=== PATIENT | female | born 1970 | race African-American/Black ===

== ENCOUNTER 2020-12-09 09:01 | Outpatient (CLI) | payer OTHER, SELFPAY ==
--- NOTE | ~2020-12-09 | MM_ITS ---
EXAMINATION: MM screening ismael BI w humaira HISTORY: Screening mammogram TECHNIQUE: Craniocaudal and mediolateral oblique 3-D tomosynthesis images were obtained and synthetic 2-D images were generated. CAD analysis was submitted and interpreted. COMPARISON: 09/14/2019, 03/26/2017, 09/06/2015 bilateral digital screening mammogram examinations BREAST PARENCHYMAL COMPOSITION: There are scattered areas of fibroglandular density. FINDINGS: There are 2 biopsy markers on the left; history of prior benign left breast biopsy. There i s no evidence of suspicious mass, calcification, or architectural distortion to suggest malignancy in either breast. There has been no suspicious interval change. IMPRESSION: 1. No mammographic evidence of malignancy. 2. Recommend routine screening mammography in one year. BI-RADS Category 1: Negative Reviewed, dictated and finalized at location A. TARY SOURCE OPERATIONS SPECIALIST
== END 2020-12-09 09:02 | disposition home or self-care (01) ==
LOC: ANHIMG 09:06
PROVIDERS: PCP Internal Medicine; Visit Provider Internal Medicine
DX: Z12.31 Encounter for screening mammogram for malignant neoplasm of breast (principal)
CPT/HCPCS: 77063; 77067

== ENCOUNTER 2021-08-11 13:51 | Outpatient (CLI) | payer OTHER, SELFPAY ==
--- NOTE | ~2021-08-11 | MMUS_ITS ---
EXAMINATION: MM diagnostic ismael LT w humaira, US breast LT limited HISTORY: Palpable left breast abnormality TECHNIQUE: Additional 3-D tomosynthesis images of the breasts were performed and synthetic 2-D images were generated. CAD analysis was submitted and interpreted. High resolution Limited left breast ultr asound was performed. COMPARISON: Comparison to multiple prior studies sequentially, with oldest reviewed study dated 08/28. BREAST PARENCHYMAL COMPOSITION: Breast composed of scattered areas of fibroglandular density. FINDINGS: MAMMOGRAPHIC FINDINGS: There are no suspicious masses, calcifications or architectural distortion in either breast to sugges t malignancy. ULTRASOUND: Limited left breast ultrasound: At 1:00, 10 cm from the nipple there is a round slightly hyperechoic mass measuring 7 mm with internal cystic change. There is marginal vascularity. There is posterior sh adowing. IMPRESSION: 1. Probable benign left breast mass at 1:00, 10 cm from the nipple measuring 7 mm greatest dimension. No mammographic correlate. 2. Recommend 6 month follow-up left breast ultrasound BI-RADS category 3, probably benign findings. Reviewed, dictated and finalized at location A. IMPRESSION: 1. Probable benign left breast mass at 1:00, 10 cm from the nipple measuring 7 mm greatest dimension. No mammographic correlate. 2. Recommend 6 month follow-up left breast ultrasound BI-RADS category 3, probably benign findings.
== END 2021-08-11 13:52 | disposition home or self-care (01) ==
PROVIDERS: PCP Internal Medicine; Visit Provider Internal Medicine
DX: N63.20 Unspecified lump in the left breast, unspecified quadrant (principal)
CPT/HCPCS: 76642; 77061; 77065; G0279

== ENCOUNTER 2023-09-03 12:18 | Outpatient (CLI) | payer BC, SELFPAY ==
--- NOTE | ~2023-09-03 | MM_ITS ---
EXAMINATION: MM diagnostic ismael BI w humaira HISTORY: Patient lost 140 pounds. TECHNIQUE: Additional 3-D tomosynthesis images of the breasts were performed and synthetic 2-D images were generated. CAD analysis was submitted and interpreted. COMPARISON: Comparison to multiple prior studies sequentially, with oldest reviewed study dated 08/28. BREAST PARENCHYMAL COMPOSITION: The breasts are heterogeneously dense, which may obscure small masses FINDINGS: The breasts are stable. No new masses, calcifications or architectural distortion in either breast to suggest malignancy. IMPRESSION: 1. No evidence for malignancy in either breast. 2. Routine yearly screening mammogram and regular clinical breast examination are recommended. BI-RADS Category 1: Negative Reviewed, dictated and finalized at location A. RIPSAW OPERATOR IMPRESSION: 1. No evidence for malignancy in either breast. 2. Routine yearly screening mammogram and regular clinical breast examination a re recommended. BI-RADS Category 1: Negative
== END 2023-09-03 12:19 | disposition home or self-care (01) ==
LOC: ANHIMG 12:21
PROVIDERS: PCP Internal Medicine; Visit Provider Internal Medicine
DX: R92.8 Other abnormal and inconclusive findings on diagnostic imaging of breast (principal)
CPT/HCPCS: 77062; 77066; G0279

== ENCOUNTER 2025-05-26 15:44 | Outpatient (CLI) | payer BC, SELFPAY ==
--- NOTE | ~2025-05-26 | MM_ITS ---
EXAMINATION: MM screening ismael BI w humaira HISTORY: Screening TECHNIQUE: Craniocaudal and mediolateral oblique 3-D tomosynthesis images were obtained and synthetic 2-D images were generated. CAD analysis was submitted and interpreted. COMPARISON: Comparison to multiple prior studies sequentially, with oldest reviewed study dated 08/28. BREAST PARENCHYMAL COMPOSITION: Dense: The breasts are extremely dense, which lowers the sensitivity of mammography. FINDINGS: There is no evidence of suspicious mass, calcification, or architectural distortion to sugg est malignancy in either breast. There has been no suspicious interval change. IMPRESSION: 1. No mammographic evidence of malignancy. 2. Recommend routine screening mammography in one year. BI-RADS Category 1: Negative Reviewed, dictated and finalized at location B.
--- OUTSIDE RECORDS SUMMARY | 2025-05-26 15:48 | XMS_ITS | Clinical Summary ---
Author Organization [facility] Address [address] [place] [address] Care Team Providers Care Interactive Multimedia Designer Name Role Phone Irlanda Mg MD Primary Care Provider [phone] Allergies Active Allergy Reactions Criticality Noted Date Comments Povidone Iodine Rash Low 10/02/2017 Shellfish-Derived Products Rash,Angioedema Low 03/2017 Medications methylPREDNISolone , EFREM, 4 MG tablet Take 1 tablet (4 mg total) by mouth see administration instructions. 6 TABLETS ON DAY ONE, 5 TABLETS DAY TWO, 4 TABLETS DAY THREE, 3 TABLETS DAY FOUR, 2 TABLETS DAY FIVE, AND 1 TABLET DAY SIX 1 each 10/02/20 17 Active ondansetron 4 MG disintegrating tablet Take 2 tablets (8 mg total) by mouth every 8 (eight) hours as needed for Nausea. 20 tablet 10/02/20 17 Active hydrocodone-acetam inophen 5-325 MG tablet Take 1 tablet by mouth every 6 (six) hours as needed for Pain. 12 tablet 10/06/20 17 Active Active Problems No known active problems Social History Tobacco Use Types Packs/Day Years Used Date Smoking Tobacco: Never Smokeless Tobacco: Never Alcohol Use Standard Drinks/Week Comments No 0 (1 standard drink = 0.6 oz pur e alcohol) Comments No Sex and Gender Information Value Date Recorded Sex Assigned at Female 01/21/2025 8:37 AM CDT Legal Sex Female 8:23 PM CDT Gender Identity Not on file Sexual Orientation Not on file Last Filed Vital Signs Vital Sign Reading Time Taken Comments Blood Pressure 127/65 05/16/2018 6:12 PM CDT Pulse 64 05/16/2018 6:12 PM CDT Temperature 36.9 C (98.5 F) 05/16/2018 1:30 PM CDT Respiratory Rate 18 05/16/2018 6:12 PM CDT Oxygen Saturation 98% 05/16/2018 6:12 PM CDT Inhaled Oxygen Concentration - - Weight 102.1 kg (225 lb) 05/16/2018 1:30 PM CDT Height 167.6 cm (5' 6) 05/16/2018 1:30 PM CDT Body Mass Index 36.32 05/16/2018 1:30 PM CDT Plan of Treatment Health Maintenance Due Date Last Done Comments Colorectal Cancer Screening Colonoscopy (10 Years) 1969 Annual Physical 1972 Hepatitis C 1987 DTaP, Tdap and Td Vaccines ( 1 - Tdap) 1988 Hepatitis B Vaccines (1 of 3 - 19+ 3-dose series) 1988 Mammogram Screening 2009 Pneumococcal Vaccine: 50+ Years (1 of 1 - PCV) 2019 Zoster Vaccines (1 of 2) 2019 09/27/2024 COVID-19 Vaccine (4 - 2023-2 5 season) 2024 09/11/2021, 12/14/2020, 11/16/2020 Meningococcal B Vaccine Aged Out No l onger eligible based on patient's age to complete this topic Meningococcal Vaccine Aged Out No walter ricky eligible based on patient's age to complete this topic RSV Immunizations Under 20 Months Aged Out No longer eligible b ased on patient's age to complete this topic Insurance [facility] Care Teams Interactive Multimedia Designer Relationship Specialty Start Date End Date Irlanda Mg MD PCP - General 02/12/17
--- OUTSIDE RECORDS SUMMARY | 2025-05-26 15:48 | XMS_ITS | Encounter Summary ---
Author Organization [facility] Address [address] [place] [address] Care Team Providers Care Catalytic Converter Operator Helper Name Role Phone Irlanda Mg MD Primary Care Provider [phone] Irlanda Mg MD Unavailable [phone] Encounter Details Date Type Department Care Team (Late st Contact Info) Description 08/22/2020 [facility] Outpatient Visit [facility] [address] [place] [address] [place] [address] [address] Social History Tobacco Use Types Packs/Day Years Used Date Smoking Tobacco: Never Smokeless Tobacco: Never Alcohol Use Standard Drinks/Week Comments No 0 (1 standard drink = 0.6 oz pur e alcohol) Comments No Sex and Gender Information Value Date Recorded Sex Assigned at Not on file Legal Sex Female 5:32 AM TRADER Gender Identity Not on file Sexual Orientation Not on file documented as of this encounter Functional Status * Is person deaf or have serious hearing difficulty? Answer Date of Assessment Author No 08/05/2016 1:26 AM Eden Andrews RN * Is person blind or have serious difficulty seeing? Answer Date of Assessment Author No 08/05/2016 1:26 AM Eden Andrews RN * Does person have serious difficulty walking/climbing stairs? Answer Date of Assessment Author No 08/05/2016 1:26 AM Eden Andrews RN * Does person have difficulty dressing/bathing? Answer Date of Assessment Author No 08/05/2016 1:26 AM Eden Andrews RN * Does person have difficulty doing errands alone? Answer Date of Assessment Author No 08/05/2016 1:26 AM Eden Andrews RN documented as of this encounter Mental Status * Does person have difficulty concentrating/remembering/making decisions? Answer Entry Date Author No 08/05/2016 1:26 AM Eden Andrews RN documented in this encounter Plan of Treatment Not on file documented as of this encounter Visit Diagnoses Not on filedocumented in this encounter Care Teams Catalytic Converter Operator Helper Relationship Specialty Start Date End Date Irlanda Mg MD [address] [place] [address] PCP - General Internal Medicine 01/28/19 Irlanda Mg MD [address] [facility] [address] [place] [address] Internal Medicine 01/28/19 documented as of this encounter
--- OUTSIDE RECORDS SUMMARY | 2025-05-26 15:48 | XMS_ITS ---
Author Organization [facility] ([address]) Address [address] [address] Care Team Providers Care Campaign Marketing Specialist Name Role Phone Irlanda Mg Primary Care Provider Unavailab Dr. Orville Carvalho Unavailable [phone] [facility], Provider Unavailable Unavailab myriam Allergies Allergen (clinical drug ingredient) Drug/Non Drug Allergy documented on EMR Reaction Allergy Type Onset Date Status povidone-iodine Betadine rash Drug Allergy A ctive codeine Codeine stomach upset Drug Allergy Act sonya tramadol traMADol stomach upset Drug Allergy Act sonya REASON FOR VISIT [facility] Encounter Medications Medication SIG (Take, Route, Frequency, Duration) Notes Start Date End Date Status Amitriptyline HCl 25 MG 1/2 tab qHS x 1 wk, then 1 tab qHS orally as directed; Duration: 30 days 08/08/2023 Active amLODIPine Besylate 10 MG 1 tab(s) orally once a day Active Calcium Carbonate 500 MG 1 TAB(S) CHEWED ONCE A DAY *Please review and pick correct strength-formulatio n from [facility] options. If intended option is not shown, discontinue and re-order from Quick Search* Active Lasix 40 MG 1 tab(s) orally once a day Active Rizatriptan Benzoate 10 MG 1 tab(s) orally bid prn; Duration: 30 days 08/08/2023 Active Coreg 25 MG 1 tab(s) orally 2 times a day Active Encounters Encounter Location Date Provider Diagnosis [facility] - [facility] [address] [place] [address] 04/11/2024 Provider [facility]-Migration Plan Of Treatment No Information Progress Notes * Yamilka MACHUCADOB:1970 (54 yo F)Acc No.[id number]:04/11/2024 Patient: Yamilka VILLARREAL Provider: Fidelina ye Migration :1970 A ge:53 Y S ex:Female Date:04/11/2024 Address:[address] [place] [address] Dolores [place], [id number] Pcp:Irlanda Mg Subjective: * Chief Complaints: * [facility] . [facility] * Medical History: * Medications: T aking Lasix 40 MG Tablet 1 tab(s) orally once a day , Taking Calcium Carbonate 500 MG TABLET, CHEWABLE 1 TAB(S) CHEWED ONCE A DAY , Notes to Pharmacist: *Please review and pick correct strength-formulation [facility] options. If intended option is not shown, discontinue and re-order from Quick Search*, Taking Coreg 25 MG Tablet 1 tab(s) orally 2 times a day , Taking amLODIPine Besylate 10 MG Tablet 1 tab(s) orally once a day , Taking Amitriptyline HCl 25 MG Tablet 1/2 tab qHS x 1 wk, then 1 tab qHS orally as directed , Taking Rizatriptan Benzoate 10 MG Tablet 1 tab(s) orally bid prn * Allergies: B etadine: rash, traMADol: stomach upset - Side Effects, Codeine: stomach upset - Side Effects. Objective: * Vitals: Assessment: Plan: * Treatment: * Billing Information: * Visit Code: * Procedure Codes: * Electronic signature of Prov ider ZZ-Migration on 05/26/2025 at 03:47 PM CDT Sign off status: Pending * Provider: Fidelina ye Migration Date: 04/11/2024 Generated for Luis Antonio pruitt/Helio/Tammy on: 0 05/26/2025 03:47 PM CDT
--- OUTSIDE RECORDS SUMMARY | 2025-05-26 15:48 | XMS_ITS | Clinical Summary ---
Author Organization [facility] Address [address] [place] [address] Care Team Providers Care Roofing Contractor Name Role Phone Irlanda Mg MD Primary Care Provider [phone] Irlanda Mg MD Unavailable [phone] Source Comments [facility],non-owned Affiliates and Associated Physician Practices is amultiple site organization consisting of ambulatory clinics and hospital sitesin [place], [place], [place] and [place]. This disclosure is being madepursuant to the Care Everywhere program and may not contain all information available regarding this patient. Last updated 18.[facility] Allergies Active Allergy Reactions Criticality Noted Date Comments Povidone Iodine Rash Medium 02/16/2016 Codeine Nausea and/or Vomiting 07/11/2020 Lisinopril Cough 08/13/2019 Shellfish Allergy Urticaria Medium 04/08/2017 Tramadol Nausea and/or Vomiting 07/11/2020 Medications * Be aware that medications may not be up to date on this document. Alwaysverify current medications with the patient. pantoprazole EC (PROTONIX) 40 MG tablet Take 1 (one) tablet by mouth once daily Active carvedilol (COREG) 25 MG tablet Take 0.5 (one-half) tablet to 1 (one) tablet by mouth 2 times daily with morning and evening meal Hold if BP less than 90/60 Active Eliquis 2.5 MG tablet 03/17/2024 Active aspirin EC (Ecotrin) 81 MG tablet Take 1 (one) tablet by mouth once daily Active Acetaminophen-C odeine #3 300-30 MG Take 1 (one) tablet by mouth every 6 hours as needed 02/25/2023 Active diazePAM (Valium) 5 MG tablet 03/17/2024 Active cefadroxil (Duricef) 500 MG capsule 03/17/2024 Active vitamin D, ergocalciferol, (Drisdol) 1.25 MG (36957 UT) capsule TAKE 1 CAPSULE BY MOUTH ONE TIME PER WEEK 02/09/2024 Active ondansetron, disintegrating, (Zofran ODT) 4 MG tablet 03/17/2024 Active rizatriptan (Maxalt) 10 MG tablet TAKE 1 TABLET BY MOUTH TWICE A DAY NEEDED FOR 30 DAYS Active tiZANidine (Zanaflex) 4 MG tablet TAKE 1 TABLET BY MOUTH EVERY 6 - 8 HOURS NEEDED NOT TO EXCEED 3 DOSES IN 24 HOURS Active Calcium 250 MG 0 10/31/2023 Acti ve Multiple Vitamin (MULTIVITAMIN ADULT PO) 0 10/31/2023 Active amLODIPine (Norvasc) 10 MG tablet Take 1 (one) tablet by mouth once daily Active Active Problems Problem Noted Date Diagnosed Date 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 S/P gastric bypass 04/03/2021 Belching 06/21/2016 Gastroesophageal reflux disease without esophagi tis 02/16/2016 Abdominal bloating 02/16/2016 Nausea 02/16/2016 Hypertension 12/09/2013 Family History Medical History Relation Name Comments Glaucoma Maternal Grandfather Blindness Neg Hx Macular Degeneration Neg Hx Relation Name Status Comments Maternal Grandfather Social History Tobacco Use Types Packs/Day Years Used Date Smoking Tobacco: Never Smokeless Tobacco: Never Alcohol Use Standard Drinks/Week Comments Never 0 (1 standard drink = 0.6 oz pur e alcohol) AUDIT-C Answer Date Recorded Q1: How often do you have a drink containing alc ohol? Never 01/07/2022 Average Number of Drinks Not on file 022 Frequency of Binge Drinking Not on file 12/26 Comments No Sex and Gender Information Value Date Recorded Sex Assigned at Not on file Legal Sex Female 5:32 AM PRODUCT DISTRIBUTION SPECIALIST Gender Identity Not on file Sexual Orientation Not on file Last Filed Vital Signs Vital Sign Reading Time Taken Comments Blood Pressure 133/81 01/07/2022 4:31 AM CDT Pulse 78 01/07/2022 4:31 AM CDT Temperature 37.2 C (99 F) 01/07/2022 3:04 AM CDT Respiratory Rate 22 01/07/2022 4:31 AM CDT Oxygen Saturation 100% 01/07/2022 4:31 AM CDT Inhaled Oxygen Concentration - - Weight 89.8 kg (198 lb) 01/07/2022 3:01 AM CDT Height 167.6 cm (5' 6) 01/07/2022 3:01 AM CDT Body Mass Index 31.96 01/07/2022 3:01 AM CDT Plan of Treatment Health Maintenance Due Date Last Done Comments COLOGUARD (AGES 45-75) - COLON CA SCREENING 1969 COLON MONITORING 1969 COLONOSCOPY - COLON CA SCREENING 1969 CT COLONOGRAPHY - COLON CA SCREENING 1969 Colorectal Cancer Screening 1969 FIT - COLON CA SCREENING 1969 FLEX SIG - COLON CA SCREENING 1969 LIPID TESTING 1969 MAMMOGRAM 1969 HIV SCREENING 1984 HEPATITIS C SCREENING 11/24/1987 DTAP/TDAP/TD VACCINES (1 - Tdap) 1988 HEPATITIS B VACCINE (1 of 3 - 19+ 3-dose series) 1988 PNEUMOCOCCAL VACCINE 50+ (1 of 1 - PCV) 2019 ZOSTER VACCINE (1 of 2) 2019 COVID-19 VACCINE ( season) 2024 09/18/2021, 12/14/2020, 11/16/2020 DEPRESSION SCREENING 10/28/2024 INFLUENZA VACCINE (#1) 2025 , 08/03/2022, 07/28/2022, Additional history exists HIB VACCINE Aged Out No longer eligi ble based on patient's age to complete this topic HPV VACCINE Aged Out No longer eligi ble based on patient's age to complete this topic MENINGOCOCCAL (Group B) VACCINE SHARED DECISION-MAKING Aged Out No longer eligible based on patient's age to complete this topic MENINGOCOCCAL GROUPS A/C/Y/W VACCINE Aged Out No longer eligible based on patient's age to complete this topic Insurance [employer] Advance Directives * Full Code (Latest Code Status on File) Date Activated Date Inactivated Comments 04/03/2021 8:07 PM 04/05/2021 1:52 PM * Full Code Date Activated Date Inactivated Comments 08/05/2016 1:19 AM 08/08/2016 1:22 PM * Full Code Date Activated Date Inactivated Comments 07/31/2016 8:43 PM 08/03/2016 3:56 PM Care Teams Roofing Contractor Relationship Specialty Start Date End Date Irlanda Mg MD [address] [place] [address] PCP - General Internal Medicine 01/28/19 Irlanda Mg MD [address] [place] [address] Internal Medicine 01/28/19
--- OUTSIDE RECORDS SUMMARY | 2025-05-26 15:48 | XMS_ITS | Clinical Summary ---
Author Organization [facility] Address [address] [place] [address] Phone Care Team Providers Care Copying Machine Mechanic Name Role Phone Irlanda Mg MD Primary Care Provider [phone] Allergies Active Allergy Reactions Criticality Noted Date Comments Codeine Unknown 01/09/2021 Povidone-Iodine Unknown 01/09/2021 Shrimp Unknown 01/09/2021 Medications hydrALAZINE (APRESOLINE) 50 mg tablet Take 50 mg by mouth 2 times daily. Active carvediloL (COREG) 25 mg tablet Take 25 mg by mouth 2 times daily. Active losartan-hydroC HLOROthiazide (HYZAAR) 100-12.5 mg tablet Take 1 Tablet by mouth daily. Active spironolactone (ALDACTONE) 25 mg tablet Take 25 mg by mouth daily. Active aspirin (ECOTRIN EC) 81 mg Tablet, Delayed Release (E.C.) Take 81 mg by mouth daily. Active multivitamin (DAILY-VIKTOR) tablet Take 1 Tablet by mouth daily. Active CALCIUM CITRATE ORAL Take 500 mg by mouth 3 times daily. Active furosemide (LASIX) 20 mg tablet Take 20 mg by mouth 1 time daily as needed for Other (See Comment) (ankle swelling). Active ferrous sulfate (Iron) 325 mg (65 mg iron) tablet Take 325 mg by mouth daily. Active acetaminophen/d iphenhydramine (TYLENOL PM ORAL) Take by mouth 1 time daily as needed. Headache Active suvorexant (BELSOMRA ORAL) Take by mouth nightly as needed for Other (See Comment) (insomnia). Active pantoprazole (PROTONIX) 40 mg Tablet, Delayed Release (E.C.) Take 40 mg by mouth daily. Active Active Problems Problem Noted Date Diagnosed Date Hypertensive urgency Numbness and tingling of right arm Benign essential HTN Gastroesophageal reflux disease New daily persistent headache Family History Medical History Relation Name Comments Stroke Brother Stroke Mother Relation Name Status Comments Brother Mother Social History Tobacco Use Types Packs/Day Years Used Date Smoking Tobacco: Never Smokeless Tobacco: Never Alcohol Use Standard Drinks/Week Comments Never 0 (1 standard drink = 0.6 oz pur e alcohol) Comments Unknown Sex and Gender Information Value Date Recorded Sex Assigned at Not on file Legal Sex Female 6:06 PM CDT Gender Identity Not on file Sexual Orientation Not on file Last Filed Vital Signs Vital Sign Reading Time Taken Comments Blood Pressure 160/89 01/11/2021 9:03 AM CDT Pulse 98 01/11/2021 9:03 AM CDT Temperature 36.9 C (98.4 F) 01/11/2021 6:56 AM CDT Respiratory Rate 25 01/11/2021 9:03 AM CDT Oxygen Saturation 94% 01/11/2021 9:03 AM CDT Inhaled Oxygen Concentration - - Weight 122 kg (269 lb) 01/11/2021 4:28 AM CDT Height 167.6 cm (5' 6) 01/10/2021 2:48 PM CDT Body Mass Index 43.42 01/10/2021 2:48 PM CDT Plan of Treatment Health Maintenance Due Date Last Done Comments DTAP/TDAP/TD VACCINES (1 - Tdap) 1988 HEPATITIS B VACCINES (1 of 3 - 19+ 3-dose series) 1988 BREAST CANCER SCREENING 2009 COLORECTAL SCREENING 2014 Colorectal Cancer Screening 2014 FIT-DNA Q 3 years 2014 FIT/FOBT Q 1 year 2014 Flex Sig/CT Colonography Q 5 years 2014 ZOSTER VACCINE (1 of 2) 2019 INFLUENZA VACCINE (#1) 2025 2, 09/13/2019, 07/13/2018 Insurance R [facility] OPTIONS PPO [id number] [facility] BLUE ACCESS CHOICE Advance Directives For more information, please contact: [phone] * Full Code (Latest Code Status on File) Date Activated Date Inactivated Comments 01/10/2021 9:48 AM 01/11/2021 2:09 PM * Default Full Code - Needs Discussion Date Activated Date Inactivated Comments 01/10/2021 8:47 AM 01/10/2021 9:48 AM Care Teams Copying Machine Mechanic Relationship Specialty Start Date End Date Irlanda Mg MD [address] [place] [phone] PCP - General Internal Medicine 01/09/21
--- OUTSIDE RECORDS SUMMARY | 2025-05-26 15:48 | XMS_ITS | Clinical Summary ---
Author Organization [facility] Building [address] Address [address] [place] [address] Care Team Providers Care Photo Specialist Name Role Phone Irlanda Mg MD Primary Care Provider [phone] Nahid Ramirez MD Unavailable [phone] Allergies Active Allergy Reactions Criticality Noted Date Comments Povidone-Iodine Rash Medium Codeine Nausea And Vomiting,Nausea & Vomiting Low 07/11/2020 Lisinopril Unknown 08/13/2019 Shrimp Unknown 01/09/2021 Tramadol Nausea And Vomiting 07/11/2020 Medications carvedilol (COREG) 6.25 mg tablet Take 6.25 mg by mouth 2 (two) times a day with meals Active hydroCHLOROthia zide (HYDRODIURIL) 12.5 mg tablet daily Activ e cyclobenzaprine (FLEXERIL) 5 mg tablet Take 1 tablet (5 mg total) by mouth 3 (three) times a day as needed for muscle spasms 30 tablet 12/10/2021 Active oxyCODONE-aceta minophen (PERCOCET) 5-325 mg per tabletIndicatio ns:Pain Take 1 tablet by mouth every 4 (four) hours as needed for pain 20 tablet 01/25/2022 Active diazePAM (VALIUM) 5 mg tablet Take 1 tablet (5 mg total) by mouth 2 (two) times a day 10 tablet 01/25/[address] (PROTONIX) 40 mg EC tablet Take 40 mg by mouth daily Active losartan (COZAAR) 100 mg tablet Take 100 mg by mouth daily Active spironolactone (ALDACTONE) 25 mg tablet Take 25 mg by mouth daily Active hydrALAZINE (APRESOLINE) 100 mg tabletIndicatio ns:hypertension Take 100 mg by mouth 2 (two) times a day Active multivitamin capsule Take 1 capsule by mouth daily Active pregabalin (LYRICA) 75 mg capsule Take 1 capsule (75 mg total) by mouth 2 (two) times a day for 20 doses 60 capsule 01/27/2022 Active oxyCODONE-aceta minophen (PERCOCET) 5-325 mg per tabletIndicatio ns:Pain Take 1 tablet by mouth every 4 (four) hours as needed for pain for up to 20 doses 20 tablet 01/29/2022 Active meloxicam (MOBIC) 15 mg tablet Take 1 tablet (15 mg total) by mouth daily 30 tablet 01/29/2022 Active Active Problems Problem Noted Date Diagnosed Date Chronic low back pain, unspe cified back pain laterality, unspecified whether sciatica present 01/28/2022 Chronic low back pain 01/26/2022 Benign essential HTN 01/25/2022 Hypertensive urgency 01/25/2022 New daily persistent headache 01/25/2022 Numbness and tingling of right arm 01/25/2022 Pulsatile tinnitus 05/10/2021 S/P gastric bypass 04/03/2021 Belching 06/21/2016 Abdominal bloating 02/16/2016 Gastroesophageal reflux disease without esophagi tis 02/16/2016 Nausea 02/16/2016 Hypertension 12/09/2013 Immunizations Immunization Administration Dates Next Due Influenza, Quadrivalent, Deolres l Culture-based MDCK, Preservative Free, Antibiotic Free, Intramuscular 09/13/2019 Influenza, Quadrivalent, Spl it, Preservative Free, Intramuscular 07/13/2018 Surgical History Surgery Date Site/Laterality Comments PARTIAL HYSTERECTOMY TONSILLECTOMY AND ADENOIDECTOMY STOMACH SURGERY GALLBLADDER SURGERY SECTION X 2 Medical History Medical History Date Comments High blood pressure Family History Medical History Relation Name Comments Heart disease Father Family history of cardiac disorder - (Added by TW Conv) Relation Name Status Comments Father Social History Tobacco Use Types Packs/Day Years Used Date Smoking Tobacco: Never Smokeless Tobacco: Never Social Connection and Isolat ion Panel [NHANES] Answer Date Recorded In a typical week, how many times do you talk on the phone with family, friends, or neighbors? More than three times a week 01/26/2022 How often do you get togethe r with friends or relatives? Twice a week 01/26/2022 How often do you attend chur ch or bahai services? More than 4 times per year 01/26/2022 Active Member of Clubs or Organizations Not on f ile 01/26/2022 Attends Club or Organization Meetings Not on marifer e 01/26/2022 Are you , , di vorced, , never , or living with a partner? 01/26/2022 AUDIT-C Answer Date Recorded Q1: How often do you have a drink containing alc ohol? Never 01/26/2022 Average Number of Drinks Not on file 022 Frequency of Binge Drinking Not on file 10/2021 Overall Financial Resource Strain (CARDIA) Answe r Date Recorded How hard is it for you to pa y for the very basics like food, housing, medical care, and heating? Not very hard 01/26/2022 Hunger Vital Sign Answer Date Recorded Within the past 12 months, y ou worried that your food would run out before you got the money to buy more. Never true 01/27/20 22 Within the past 12 months, t he food you bought just didn't last and you didn't have money to get more. Never true 01/26/2022 PRAPARE - Transportation Answer Date Re corded In the past 12 months, has l ack of transportation kept you from medical appointments or from getting medications? No 10/2021 In the past 12 months, has l ack of transportation kept you from meetings, work, or from getting things needed for daily living? No 01/26/2022 Housing Stability Vital Sign Answer Saurabh e Recorded In the last 12 months, was t here a time when you were not able to pay the mortgage or rent on time? No 01/26/2022 Number of Places Lived in the Last Year Not on f ile 01/26/2022 In the last 12 months, was t here a time when you did not have a steady place to sleep or slept in a nursing home (including now)? No 01/26/2022 Personal Safety Answer Date Recorded Have you ever been in or are you currently in a harmful physical or emotional relationship or is someone making you feel afraid or unsafe? 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 Gender Identity Not on file Sexual Orientation Not on file Obstetrics History Last Filed Vital Signs Vital Sign Reading Time Taken Comments Blood Pressure 129/78 04/18/2024 7:00 AM CDT Pulse 64 04/18/2024 7:00 AM CDT Temperature 37 C (98.6 F) 04/18/2024 4:26 AM CDT Respiratory Rate 20 04/18/2024 6:00 AM CDT Oxygen Saturation 96% 04/18/2024 7:00 AM CDT Inhaled Oxygen Concentration - - Weight 86.6 kg (191 lb) 04/18/2024 4:26 AM CDT Height 167.6 cm (5' 6) 04/18/2024 4:26 AM CDT Body Mass Index 30.83 04/18/2024 4:26 AM CDT Plan of Treatment Health Maintenance Due Date Last Done Comments Colon Cancer Screening-Colonoscopy 1969 Depression Screening 1969 Hepatitis C Screening 1969 DTaP/Tdap/Td Vaccine (1 - Tdap) 1980 Hepatitis B Screening 1987 Regular Well Visit/Exam 18-64 1987 Zoster Vaccine (1 of 2) 2019 Breast Cancer Screening-Mammogram 12/19/2021 12/19/2020, 12/09/2020, 09/11/2019, Additional history exists Covid-19 Vaccine ( season) 2024 09/11/2021, 12/14/2020, 11/16/2020 Influenza Vaccine (#1) 2025 , 09/13/2019, 07/13/2018, Additional history exists Pneumococcal vaccine <65 Aged Out No longer eligible based on patient's age to complete this topic Insurance R [facility]PPO Address: [facility] [address] [place] [address] [facility]PPO Address: [address] [address] [place] [address] [facility] CHOICE PLUS [facility] HMO/PPO Address: [address] [address] [place] [address] [facility] CHOICE ANTHEM ACCESS CHOICE Care Teams Photo Specialist Relationship Specialty Start Date End Date Irlanda Mg MD [address] [place] [address] PCP - General 09/17/19 Nahid Ramirez MD [address] [place] [address] Surgeon Neurosurgery 01/27/22
--- OUTSIDE RECORDS SUMMARY | 2025-05-26 15:48 | XMS_ITS | Referral Summary ---
Author Organization [facility] Building [address] Address [address] [place] [address] Care Team Providers Care Oral And Maxillofacial Surgery Name Role Phone Irlanda Mg MD Primary Care Provider [phone] Nahid Ramirez MD Unavailable [phone] Allergies Active Allergy Reactions Criticality Noted [...] Immunization Administration Dates Next Due Influenza, Quadrivalent, Delores l Culture-based MDCK, Preservative Free, Antibiotic Free, Intramuscular 09/13/2019 Influenza, Quadrivalent, Spl it, Preservative Free, Intramuscular 07/13/2018 Social History Tobacco Use Types Packs/Day Years [...] often do you attend chur ch or buddhist services? More than 4 times per year [...] place to sleep or slept in a group home (including now)? No 01/26/2022 Personal Safety Answer Date Recorded Have you ever been in or are you currently in a harmful physical or emotional relationship or is someone making you feel afraid or unsafe? 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
--- OUTSIDE RECORDS SUMMARY | 2025-05-26 15:48 | XMS_ITS | Patient Health Record ---
Author Organization [facility] [address] [place] ([address]) Address [address] [place] [id number] Care Team Providers Care Facility Mechanic Name Role Phone Saurav Irlanda Primary Care Provider UnavailDr. Orville De [facility] [phone] Allergies Allergen (clinical drug ingredient) Drug/Non Drug Allergy documented on EMR Reaction Allergy Type Onset Date Status povidone-iodine Betadine rash Drug Allergy A ctive codeine Codeine stomach upset Drug Allergy Act sonya tramadol traMADol stomach upset Drug Allergy Act sonya Reason For Referral No Information Medications Medication SIG (Take, Route, Frequency, Duration) Notes Start Date End Date Status Amitriptyline HCl 25 MG 1/2 tab qHS x 1 wk, then 1 tab qHS orally as directed; Duration: 30 days 08/08/2023 Active amLODIPine Besylate 10 MG 1 tab(s) orally once a day Active CALCIUM CARBONATE 500 mg 1 tab(s) chewed once a day Active Coreg 25 MG 1 tab(s) orally 2 times a day Active COREG 25 mg 1 tab(s) orally 2 times a day Active Calcium Carbonate 500 MG 1 TAB(S) CHEWED ONCE A DAY *Please review and pick correct strength-formulatio n from Medispan options. If intended option is not shown, discontinue and re-order from Quick Search* Active AMLODIPINE 10 mg 1 tab(s) orally once a day Active Lasix 40 MG 1 tab(s) orally once a day Active LASIX 40 mg 1 tab(s) orally once a day Active AMITRIPTYLINE 25 mg 1/2 tab qHS x 1 wk, then 1 tab qHS orally as directed; Duration: 30 days 08/08/2023 Active Rizatriptan Benzoate 10 MG 1 tab(s) orally bid prn; Duration: 30 days 08/08/2023 Active RIZATRIPTAN 10 mg 1 tab(s) orally bid prn; Duration: 30 days 08/08/2023 Active Problems Problem Type SNOMED Code ICD Code Onset Dates Problem Status W/U Status Risk Notes Problem Chronic migraine without aura, non-refractory (disorder) (955969123498411 ) Migraine without aura, not intractable, without status migrainosus (G43.009) Active confirmed Problem Migraine with aura (4635132) Migraine with aura, not intractable, without status migrainosus (G43.109) Active confirmed Problem Chronic migraine without aura, non-intractable (025058335725318 ) Chronic migraine without aura, not intractable, without status migrainosus (G43.709) Active confirmed Problem Insomnia (489891296) Insomnia, unspecified (G47.00) Active confirmed Problem Hypersomnia (60917313) Hypersomnia, unspecified (G47.10) Active confirmed Problem Sleep apnea (45199060) Sleep apnea, unspecified (G47.30) Active confirmed Problem Snoring (99250036) Snoring (R06.83) Active confirmed Problem Tinnitus (87554691) Pulsatile tinnitus, left ear (H93.A2) Active confirmed Plan Of Treatment Pending Test Test Name Order Date MRA: Head, w/o contrast 08/08/2023 MRI : Brain (without contrast) MRA: Neck, w/o contrast 08/08/2023 Insurance Providers Payer Name Payer Address Payer Phone Subscriber Number Group Number Insured Name Patient Relationship to Insured Coverage Start Date Coverage End Date [facility] [address] [place] [address] [id number] Jean Davis Spouse - patient is the spouse of the insured Medical (General) History Medical History History ICD Code Essential (primary) hypertension I10 Obesity Lumbar DDD Surgical History Surgery Date(Month/Year) S/p gastric bypass S/p lumbar microdiscectomy S/p partial hysterectomy
== END 2025-05-26 15:45 | disposition home or self-care (01) ==
LOC: ANHIMG 15:45
PROVIDERS: PCP Internal Medicine; Visit Provider Internal Medicine
DX: Z12.31 Encounter for screening mammogram for malignant neoplasm of breast (principal)
CPT/HCPCS: 77063; 77067